=== PATIENT | female | born 1950 | race Two or more races ===

== ENCOUNTER 2022-01-17 14:45 | Emergency (ER) | payer MEDICARE, BC ==
[~2022-01-17] VITALS: Ht 157.5 cm; Wt 64.9 kg
--- NOTE | 2022-01-17 15:05 | NUR ---
RECEIVED PT 72YRS OLD FEMALE WALKING FROM HOME BLEEDING ON PROCEDURE SITE THIS IN LOWER back bleeding on site
[2022-01-17] MEDS ORDERED: SILVER NITRATE APPLICATOR 1 EA BOX ONE (15:19)
--- NOTE | 2022-01-17 15:20 | NUR ---
DR. RATLIFF AT BED SITE ASHTYN DONE ORDER WAS GIVEN
[2022-01-17] MEDS ORDERED: LIDOCAINE 1%-EPI 1:100,000 20 ML VIAL ONE ×2 (15:21→15:41)
[2022-01-17] MEDS ORDERED: IV NS 0.9% 1,000 ML BAG IV ONE (15:30)
[2022-01-17] MEDS ORDERED: LIDOCAINE 1%-EPI 1:100,000 20 ML VIAL TP ONE (15:30)
--- NOTE | 2022-01-17 15:40 | NUR ---
INSERTED ango catheter G20 blood drow and sent to lab ivf ns infused ans patent ns
[2022-01-17 16:21] LABS: BASOPHILS # (AUTO) 0.1 K/uL (0.0-0.2); EOSINOPHILS % (AUTO) 1.1 % (0.0-6.0); HEMATOCRIT 32 % (33-45); HEMOGLOBIN 10.8 g/dL (11.5-14.8); LYMPHOCYTES # (AUTO) 2.5 K/uL (0.8-4.8); LYMPHOCYTES % (AUTO) 40.6 % (20.0-44.0); MEAN CORPUSCULAR HGB CONC 34 g/dl (31.0-36.0); MEAN CORPUSCULAR VOLUME 92 fL (82-100); MONOCYTES # (AUTO) 0.6 K/uL (0.1-1.30); MONOCYTES % (AUTO) 10.1 % (2.0-12.0); NEUTROPHILS % (AUTO) 47.2 % (43.0-81.0); PLATELET COUNT (AUTO) 239 K/uL (150-450); WHITE BLOOD COUNT (AUTO) 6.3 K/uL (4.3-11.0)
--- NOTE | 2022-01-17 16:40 | NUR ---
pt lying on lt side
--- NOTE | 2022-01-17 17:20 | NUR ---
DRESSING APPLED NO ACTIVE bleeding on site
--- NOTE | 2022-01-17 17:21 | NUR ---
D/C INSTRACTION GIVEN TO PT FULLY AND VERBLIZED UNDERSTOOD D/C HOME WITH RX AND FALLOW UP CARE
[2022-01-17 17:30] VITALS: BP 120/90
== END 2022-01-17 17:31 | disposition home or self-care (01) ==
LOC: ER 15:15
DX: S31.010A Laceration without foreign body of lower back and pelvis without penetration into retroperitoneum, initial encounter (principal); M96.831 Postprocedural hemorrhage of a musculoskeletal structure following other procedure; X58.XXXA Exposure to other specified factors, initial encounter; Y93.89 Activity, other specified; Y92.89 Other specified places as the place of occurrence of the external cause; Y99.8 Other external cause status
CPT/HCPCS: 99285; 96360; 12001; 85025; 36415; 85730; J3490 ×2